=== PATIENT | male | born 1950 | race Caucasian/White ===

== ENCOUNTER 2017-04-28 11:38 | Emergency (ER) | payer MEDICARE, OTHER ==
[~2017-04-28] VITALS: Ht 180.3 cm; Wt 113.4 kg
[~2017-04-28 11:38] MED LIST: AMITRIPTYLINE100 MG PO; ATENOLOL50 MG PO; BUSPIRONE HCL15 MG PO; CHLORHEXIDINE473 ML MT; DICLOFENAC SODI75 MG PO; FELODIPINE ER5 MG PO; HYDROCHLOROTHIA25 MG PO; LEVOTHYROXINE100 MCG PO; LISINOPRIL10 MG PO; NORTRIPTYLINE H75 MG PO; NYSTOP60 GM TOP; OMEPRAZOLE20 MG PO; RISPERDAL4 MG PO; SEROQUEL300 MG PO
[2017-04-28] MEDS ORDERED: ATENOLOL50 MG PO (11:46)
[2017-04-28] MEDS ORDERED: NORTRIPTYLINE H50 MG PO (11:47)
[2017-04-28] MEDS ORDERED: LISINOPRIL10 MG PO (11:47)
[2017-04-28] MEDS ORDERED: FELODIPINE ER5 MG PO (11:47)
[2017-04-28] MEDS ORDERED: OXYCODONE HCL5 MG PO (11:48)
[2017-04-28] MEDS ORDERED: SERTRALINE HCL50 MG PO (11:49)
[2017-04-28] MEDS ORDERED: KLOR-CON SPRIN10 MEQ PO (13:02)
[2017-04-28] MEDS ORDERED: LASIX20 MG PO (13:02)
== END 2017-04-28 13:24 | disposition home or self-care (01) ==
LOC: ED 11:38
DX: R60.0 Localized edema (principal); I10 Essential (primary) hypertension; J45.909 Unspecified asthma, uncomplicated; Z87.891 Personal history of nicotine dependence; Z88.8 Allergy status to other drugs, medicaments and biological substances; Z79.899 Other long term (current) drug therapy; Z79.891 Long term (current) use of opiate analgesic
CPT/HCPCS: 71020; 80048; 83880; 85025; 96374; 99283